=== PATIENT | female | born 1965 | race Two or more races ===

== ENCOUNTER 2020-02-29 17:23 | Inpatient (IN) | payer MEDICAID ==
[~2020-02-29] VITALS: Ht 162.6 cm; Wt 63.5 kg
--- NOTE | 2020-02-29 17:24 | NUR ---
ED Nurse Note: patient picked up from a bus stop and brought in by [facility] 68 due to near syncope episode. Per EMS, BP went down to 73/43 and NS 250ml was given. Denies LOC or head injury. AAO x4, follows commands with non labored breathing.
[2020-02-29 17:34] VITALS: BP 115/85
--- NOTE | 2020-02-29 17:43 | Emergency Room Report ---
History of Present Illness General Chief Complaint: Syncope Source: EMS Present Illness HPI Disclaimer: Please note that this report is being documented using [employer] technology. This can lead to erroneous entry secondary to incorrect interpretation by the dictating instrument. HPI: 54-year old female presents for near syncope. Apparently she was riding the bus, became dizzy, EMS was called, on their arrival she was hypotensive around 80 systolic. Given IV fluids which did improve her blood pressure. On arrival to ER she denied any complaints. She was feeling improved. She denies any chest pain shortness of breath nausea or vomiting. She denies any fevers. She denies any hematochezia or melena. She denies any history of similar episodes in the past. Striae of hypothyroidism. Allergies: Coded Allergies: No Known Allergies (Unverified , 02/29/20) COVID-19 Screening Contact w/high risk pt: No Experienced COVID-19 symptoms?: No COVID-19 Testing performed FEED RESEARCH TECHNICIAN: No Patient History Reviewed Nursing Documentation: PMH: Agreed; PSxH: Agreed Review of Systems All Other Systems: negative except mentioned in HPI Physical Exam Vital Signs Date Time Temp Pulse Resp B/P (MAP) Pulse Ox O2 Delivery O2 Flow Rate FiO2 02/29/20 17:24 60 16 101/76 (84) 99 Room Air Sp02 EP Interpretation: reviewed, normal General Appearance: well appearing, no apparent distress Head: normocephalic, atraumatic Eyes: bilateral eye PERRL, bilateral eye EOMI ENT: hearing grossly normal, moist mucus membranes Neck: full range of motion, supple Respiratory: lungs clear, normal breath sounds, no rhonchi, no respiratory distress, no retraction, no wheezing Cardiovascular #1: normal peripheral pulses, regular rate, rhythm, no murmur Gastrointestinal: non tender, soft, non-distended, no guarding Neurologic: alert, oriented x3, no focal defects Skin: normal color, warm/dry Medical Decision Making Diagnostic Impression: Primary Impression: Symptomatic bradycardia Additional Impressions: Near syncope Hypokalemia ER Course MDM: Differential diagnosis included but not limited to near syncope, symptomatic bradycardia, electrolyte disturbance dehydration, vasovagal syndrome, anemia Clinical course-IV inserted, normal saline bolus given laboratory studies were sent and showed evidence of hypokalemia. Patient was bradycardic in the ER, which may be the cause of her near syncopal event. She was never hypotensive in the ER but heart rate did go down to the high 40s. Patient denies any cardiac history. Opponent was negative. Potassium repletion given for a potassium of 2.8. Labs - Laboratory Tests Test 02/29/20 17:34 White Blood Count 5.8 K/UL (4.8-10.8) Red Blood Count 3.42 M/UL (4.20-5.40) L Hemoglobin 11.1 G/DL (12.0-16.0) L Hematocrit 33.4 % (37.0-47.0) L Mean Corpuscular Volume 98 FL (80-99) Mean Corpuscular Hemoglobin 32.4 PG (27.0-31.0) H Mean Corpuscular Hemoglobin Concent 33.2 G/DL (32.0-36.0) Red Cell Distribution Width 12.7 % (11.6-14.8) Platelet Count 185 K/UL (150-450) Mean Platelet Volume 6.8 FL (6.5-10.1) Neutrophils (%) (Auto) 47.5 % (45.0-75.0) Lymphocytes (%) (Auto) 42.4 % (20.0-45.0) Monocytes (%) (Auto) 8.1 % (1.0-10.0) Eosinophils (%) (Auto) 1.0 % (0.0-3.0) Basophils (%) (Auto) 1.1 % (0.0-2.0) Sodium Level 143 MMOL/L (136-145) Potassium Level 2.8 MMOL/L (3.5-5.1) L Chloride Level 107 MMOL/L (98-107) Carbon Dioxide Level 25 MMOL/L (21-32) Anion Gap 11 mmol/L (5-15) Blood Urea Nitrogen 20 mg/dL (7-18) H Creatinine 1.3 MG/DL (0.55-1.30) Estimated Glomerular Filtration Rate 42.4 mL/min (>60) Glucose Level 101 MG/DL (74-106) Calcium Level 8.9 MG/DL (8.5-10.1) Total Bilirubin 0.6 MG/DL (0.2-1.0) Aspartate Amino Transferase (AST) 51 U/L (15-37) H Alanine Aminotransferase (ALT) 27 U/L (12-78) Alkaline Phosphatase 37 U/L (46-116) L Troponin I 0.000 ng/mL (0.000-0.056) Total Protein 7.8 G/DL (6.4-8.2) Albumin 3.9 G/DL (3.4-5.0) Globulin 3.9 g/dL Albumin/Globulin Ratio 1.0 (1.0-2.7) On reevaluation: Patient remained in no acute distress Plan-admission to the telemetry floor for further observation. Patient admitted to the hospitalist. EKG Diagnostic Results Rate: normal Rhythm: NSR ST Segments: no acute changes Other Impression Prolonged QT Rhythm Strip Diag. Results EP Interpretation: yes Rate: 52 Rhythm: no ectopy Last Vital Signs Date Time Temp Pulse Resp B/P (MAP) Pulse Ox O2 Delivery O2 Flow Rate FiO2 02/29/20 17:24 60 16 101/76 (84) 99 Room Air Status: improved Disposition: ADMITTED INPATIENT Condition: Serious Alf Shelton M.D. Feb 29, 2020 17:43
--- NOTE | 2020-02-29 17:46 | NUR ---
ED Nurse Note: blood sent to lab
[2020-02-29 17:59] LABS: BASOPHILS % (AUTO) 1.1 % (0.0-2.0); HEMATOCRIT 33.4 % (37.0-47.0); HEMOGLOBIN 11.1 G/DL (12.0-16.0); LYMPHOCYTES % (AUTO) 42.4 % (20.0-45.0); MEAN CORPUSCULAR VOLUME 98 FL (80-99); MONOCYTES % (AUTO) 8.1 % (1.0-10.0); NEUTROPHILS % (AUTO) 47.5 % (45.0-75.0); PLATELET COUNT 185 K/UL (150-450); RED BLOOD COUNT 3.42 M/UL (4.20-5.40); RED CELL DISTRIBUTION WIDTH 12.7 % (11.6-14.8); WHITE BLOOD COUNT 5.8 K/UL (4.8-10.8)
[2020-02-29 18:22] LABS: ALBUMIN 3.9 G/DL (3.4-5.0); BILIRUBIN,TOTAL 0.6 MG/DL (0.2-1.0); CALCIUM 8.9 MG/DL (8.5-10.1); CREATININE 1.3 MG/DL (0.55-1.30); POTASSIUM 2.8 MMOL/L (3.5-5.1)
[2020-02-29 19:00] VITALS: BP 121/79
--- NOTE | 2020-02-29 19:00 | NUR ---
ED Nurse Note: received report from Nguyen godoy
[2020-02-29] MEDS ORDERED: LEVOTHYROXINE75 MCG ORAL (20:04)
[2020-02-29 20:47] VITALS: BP 118/89
--- NOTE | 2020-02-29 20:50 | NUR ---
NURSE NOTES: Report received from GUTIERREZ Rodriguez.
--- NOTE | 2020-02-29 21:00 | NUR ---
TRANSFER TO FLOOR: Patient transferred to [facility] via [facility] in stable condition as ordered, per dr. Morfin. Report given to Jody WHITLEY. Belongings and medications sent with patient
--- NOTE | 2020-02-29 21:02 | NUR ---
NURSE NOTES: Received patient from E.R via gurney to room 204-2. Patient is awake on bed, alert and oriented x 4. Belongings list checked and verified. Oriented to room, telemetry unit and hospital policies. Place monitoring and evaluation advisor, shows sinus bradycardia, HR of 52 with no chest pain reported. On room air, sating 98%. IV site is on left wrist g-20 saline lock that is patent and intact. Safety measures are in place, bed in lowest and locked position, side rails up x 2, call light button and bedside table within reach, instructed to call for any assistance needed. Will call MD for admission orders.
[2020-02-29 21:30] VITALS: BP 126/76
--- NOTE | 2020-02-29 21:30 | NUR ---
NURSE NOTES: Called and spoke to Dr. Morfin, received an orders, will carry out.
[2020-03-01] VITALS: BP 107/61
--- NOTE | 2020-03-01 00:40 | NUR ---
NURSE NOTES: Patient complaints of chest pain, nonradiating, scale of 6-7, pain describes as aching, intermittent. EKG was done, showed Sinus bradycardia, possible right ventricular hypertrophy. Vitals are as follows. BP 107/61, HR 51, O2 Sat 98%, RR 20. Informed Dr. Morfin, awaiting for call back.
[2020-03-01 04:00] VITALS: BP 103/66
--- NOTE | 2020-03-01 04:50 | NUR ---
NURSE NOTES: Dr. Morfin ordered stat troponin, will carry out. At this time, patient is asleep in stable condition, and states that she feels much better after a few hours of sleep.
[2020-03-01 05:40] LABS: BASOPHILS % (AUTO) 0.8 % (0.0-2.0); EOSINOPHILS % (AUTO) 0.9 % (0.0-3.0); HEMOGLOBIN 11.9 G/DL (12.0-16.0); LYMPHOCYTES % (AUTO) 26.2 % (20.0-45.0); MEAN CORPUSCULAR VOLUME 99 FL (80-99); MONOCYTES % (AUTO) 8.6 % (1.0-10.0); NEUTROPHILS % (AUTO) 63.5 % (45.0-75.0); PLATELET COUNT 201 K/UL (150-450); RED BLOOD COUNT 3.63 M/UL (4.20-5.40); RED CELL DISTRIBUTION WIDTH 12.6 % (11.6-14.8); WHITE BLOOD COUNT 4.7 K/UL (4.8-10.8)
[2020-03-01 06:19] LABS: ANION GAP 7 mmol/L (5-15); BLOOD UREA NITROGEN 15 mg/dL (7-18); CALCIUM 8.8 MG/DL (8.5-10.1); CARBON DIOXIDE 26 MMOL/L (21-32); CHLORIDE 108 MMOL/L (98-107); CREATININE 0.9 MG/DL (0.55-1.30); POTASSIUM 3.9 MMOL/L (3.5-5.1); SODIUM 141 MMOL/L (136-145)
--- NOTE | 2020-03-01 06:32 | NUR ---
NURSE NOTES: Troponin result is negative. Dr. Morfin made aware, no orders was made.
--- NOTE | 2020-03-01 07:29 | NUR ---
NURSE HAND-OFF REPORT: Important Events on Shift: Patient complaints of chest pain around 0045, nonradiating scale of 6-7. EKG was done, result attached to chart. Patient Status: Patient has been resting well at this time, denies any chest pain at this time. Plan of care endorsed. Diet: Cardiac diet. Pending Orders: Venous duplex scan and 2D ECHO Pending Results/Labs: cbc, bmp, mg and phos this morning Pending MD notification:none Latest Vital Signs: Temperature 97.1 , Pulse 47 , B/P 103 /66 , Respiratory Rate 20 , O2 SAT 100 , Room Air, O2 Flow Rate . Vital Sign Comment: stable EKG Rhythm: Sinus Bradycardia Rhythm change?: N MD Notified?: - MD Response: Latest Muro Fall Score: 20 Fall Risk: Low Risk Safety Measures: Call light Within Reach, Bed Alarm Zone 1, Side Rails Side Rails x2, Bed position Low and Locked. Fall Precautions: Patient Fall Education Report given to GUTIERREZ Candelaria.
--- NOTE | 2020-03-01 07:29 | NUR ---
NURSE NOTES: Pt in bed resting, breakfast tray at bedside. Says she has no chest pain at this time. Bed low and locked. Call light within reach.
[2020-03-01 08:00] VITALS: BP 114/68
--- NOTE | 2020-03-01 09:40 | History & Physical ---
History of Present Illness General Reason for Hospitalization: Syncope Present Illness HPI This is a 54-year old female who presents to [facility] for near syncope. Per report, she was on the bus, became dizzy, EMS was called, on their arrival she was hypotensive around 80 systolic. Given IV fluids and taken to [facility] arrival to ER she denied any complaints. She was feeling better but admitted for work up and management. She denies any chest pain shortness of breath nausea or vomiting. She denies any fevers. She denies any hematochezia or melena. She denies any history of similar episodes in the past Allergies: Coded Allergies: No Known Allergies (Unverified , 02/29/20) COVID-19 Screening Contact w/high risk pt: No Experienced COVID-19 symptoms?: No Medication History Scheduled Levothyroxine Sodium* (Synthorid*), 75 MCG ORAL DAILY, (Reported) Patient History Healthcare decision maker Resuscitation status Advanced Directive on File Review of Systems Review of Symptoms General ROS: no weight loss or fever Psychological ROS: no depression or mood changes, no memory loss Ophthalmic ROS: no visual changes or eye irritation ENT ROS: no nasal congestion, hearing loss, dizziness Allergy and Immunology ROS: no allergic symptoms or urticaria Hematological and Lymphatic ROS: no swollen glands, unusual bleeding or bruising Endocrine ROS: no polyuria, polydipsia, weight changes, temperature intolerance Respiratory ROS: no cough, shortness of breath, or wheezing Cardiovascular ROS: no chest pain or dyspnea on exertion Gastrointestinal ROS: denies abdominal pain, bright red blood in stool. Musculoskeletal ROS: no myalgias or arthralgias Neurological ROS: no TIA or stroke symptoms Dermatological ROS: no new or changing skin lesions, rashes or pruritis Physical Exam Physical Exam General appearance: alert, cooperative, no distress, appears stated age Head: Normocephalic, without obvious abnormality, atraumatic Eyes: conjunctivae/corneas clear. PERRL, EOM's intact. Fundi benign Throat: Lips, mucosa, and tongue normal. Teeth and gums normal Neck: supple, symmetrical, trachea midline, no adenopathy, thyroid: not enlarged, symmetric, no tenderness/mass/nodules, no carotid bruit and no JVD Lungs: clear to auscultation bilaterally Heart: regular rate and rhythm, S1, S2 normal, no murmur, click, rub or gallop Abdomen: soft, non-tender. Bowel sounds normal. No masses, no organomegaly Extremities: extremities normal, atraumatic, no cyanosis or edema Pulses: 2+ and symmetric Skin: Skin color, texture, turgor normal. No rashes or lesions Neurologic: Grossly normal Last 24 Hour Vital Signs Date Time Temp Pulse Resp B/P (MAP) Pulse Ox O2 Delivery O2 Flow Rate FiO2 03/01/20 08:00 52 03/01/20 08:00 97.9 55 18 114/68 (83) 97 03/01/20 04:00 47 03/01/20 04:00 97.1 48 20 103/66 (78) 100 03/01/20 00:00 96.6 51 20 107/61 (76) 98 03/01/20 00:00 52 02/29/20 21:59 Room Air 02/29/20 21:30 51 02/29/20 21:30 96.6 52 20 126/76 (93) 99 02/29/20 21:00 98.4 57 18 118/89 100 Room Air 02/29/20 20:47 98.4 57 18 118/89 100 Room Air 02/29/20 19:00 98.2 56 18 121/79 100 Room Air 02/29/20 17:34 97.9 78 20 115/85 100 Room Air 02/29/20 17:24 60 16 101/76 (84) 99 Room Air Intake and Output 02/29/20 03/01/20 19:00 07:00 Intake Total 1400 ml Balance 1400 ml Intake Oral 400 ml IV Total 1000 ml # Voids 3 Laboratory Tests Test 02/29/20 17:34 03/01/20 05:32 White Blood Count 5.8 K/UL (4.8-10.8) 4.7 K/UL (4.8-10.8) L Red Blood Count 3.42 M/UL (4.20-5.40) L 3.63 M/UL (4.20-5.40) L Hemoglobin 11.1 G/DL (12.0-16.0) L 11.9 G/DL (12.0-16.0) L Hematocrit 33.4 % (37.0-47.0) L 36.0 % (37.0-47.0) L Mean Corpuscular Volume 98 FL (80-99) 99 FL (80-99) Mean Corpuscular Hemoglobin 32.4 PG (27.0-31.0) H 32.8 PG (27.0-31.0) H Mean Corpuscular Hemoglobin Concent 33.2 G/DL (32.0-36.0) 33.1 G/DL (32.0-36.0) Red Cell Distribution Width 12.7 % (11.6-14.8) 12.6 % (11.6-14.8) Platelet Count 185 K/UL (150-450) 201 K/UL (150-450) Mean Platelet Volume 6.8 FL (6.5-10.1) 6.5 FL (6.5-10.1) Neutrophils (%) (Auto) 47.5 % (45.0-75.0) 63.5 % (45.0-75.0) Lymphocytes (%) (Auto) 42.4 % (20.0-45.0) 26.2 % (20.0-45.0) Monocytes (%) (Auto) 8.1 % (1.0-10.0) 8.6 % (1.0-10.0) Eosinophils (%) (Auto) 1.0 % (0.0-3.0) 0.9 % (0.0-3.0) Basophils (%) (Auto) 1.1 % (0.0-2.0) 0.8 % (0.0-2.0) Sodium Level 143 MMOL/L (136-145) 141 MMOL/L (136-145) Potassium Level 2.8 MMOL/L (3.5-5.1) L 3.9 MMOL/L (3.5-5.1) Chloride Level 107 MMOL/L (98-107) 108 MMOL/L (98-107) H Carbon Dioxide Level 25 MMOL/L (21-32) 26 MMOL/L (21-32) Anion Gap 11 mmol/L (5-15) 7 mmol/L (5-15) Blood Urea Nitrogen 20 mg/dL (7-18) H 15 mg/dL (7-18) Creatinine 1.3 MG/DL (0.55-1.30) 0.9 MG/DL (0.55-1.30) Estimat Glomerular Filtration Rate 42.4 mL/min (>60) > 60 mL/min (>60) Glucose Level 101 MG/DL (74-106) 93 MG/DL (74-106) Calcium Level 8.9 MG/DL (8.5-10.1) 8.8 MG/DL (8.5-10.1) Total Bilirubin 0.6 MG/DL (0.2-1.0) Aspartate Amino Transf (AST/SGOT) 51 U/L (15-37) H Alanine Aminotransferase (ALT/SGPT) 27 U/L (12-78) Alkaline Phosphatase 37 U/L (46-116) L Troponin I 0.000 ng/mL (0.000-0.056) 0.000 ng/mL (0.000-0.056) Total Protein 7.8 G/DL (6.4-8.2) Albumin 3.9 G/DL (3.4-5.0) Globulin 3.9 g/dL Albumin/Globulin Ratio 1.0 (1.0-2.7) Phosphorus Level 4.0 MG/DL (2.5-4.9) Magnesium Level 2.2 MG/DL (1.8-2.4) Height (Feet): 5 Height (Inches): 4.00 Weight (Pounds): 140 Medications Current Medications Medications (Trade) Dose Ordered Sig/Satya Route PRN Reason Start Time Stop Time Status Last Admin Dose Admin Levothyroxine Sodium (Synthroid) 75 mcg BEFORE BREAKFAST ORAL 03/01/20 06:30 03/31/20 06:29 03/01/20 05:52 Assessment/Plan Diagnosis [place]: #Syncope #bradycardia #Weakness - admit to tele -cardiology eval - monitor vitals - echo - TSH - increase levothyroxine to 100 mcg daily - consider endocrine eval Time spent 70 min [facility] Hospital declaration Disposition: Once the patient is stable to leave the hospital, I anticipate the patient will likely be discharged to the following environment: Home Estimated discharge date: 03/02/20 I spent 70 minutes on this patient's case, and 35 minutes was dedicated to counseling and/or care coordination. MIPS (Merit-based Incentive Payment System) Applicable CPT: 26871, 32079 CHECK ALL THAT ARE MET: Measure #5 (CHF): All ages. Prescribe CARMINA/ARB upon discharge for patients with left ventricular systolic dysfunction. If not, the reason is clearly documented in the medical chart. Measure #8 (CHF): All ages. Prescribe a beta luis upon discharge for patients with left ventricular systolic dysfunction. If not, the reason is clearly documented in the medical chart. Measure #47 Advance care plan or surrogate decision maker documented in the medical record. Measure #130 The provider has documented, updated, or reviewed the patients current medication list and has documented it in the patients note. Measure #374 (All): Send report to referring provider. Measure #407(Sepsis due to MSSA bacteremia): Age 18+ Patient treated with a beta-lactam antibiotic (Nafcillin, Oxacillin or Cefazolin) as definitive therapy. MEDICAL COMPLEXITY High complexity medical decision making (need 2/3 categories) Problem - need 4 points Acute/new problem with new plan for workup (4 points, 1 max) Acute/new problem without additional workup (3 points, 1 max) Unstable chronic problem actively being managed (2 point each, 2 max) Stable chronic problem actively being managed (1 point each, 2 max) Self-limited/transient process (constipation, muscle ache, etc) (1 point each, 2 max) Data - need 4 points Reviewed labs/imaging studies (1 points, 2 max) Independent review of imaging (EKG, xrays, etc) (2 points, 2 max) Discussed case with consult/other MD/RN (2 points, 2 max) High Risk - qualify if have one of the following: Severe exacerbation of acute problem, acute mental status change, IV narcotics, monitoring drug levels (vancomycin, INR, tacrolimus etc) Mita Morfin M.D. Mar 01, 2020 09:40
--- NOTE | 2020-03-01 10:28 | Cardiac Electrophysiology PN ---
Subjective Subjective [id number] Objective Last 24 Hour Vital Signs Date Time Temp Pulse Resp B/P (MAP) Pulse Ox O2 Delivery O2 Flow Rate FiO2 03/01/20 08:00 52 03/01/20 08:00 97.9 55 18 114/68 (83) 97 03/01/20 04:00 47 03/01/20 04:00 97.1 48 20 103/66 (78) 100 03/01/20 00:00 96.6 51 20 107/61 (76) 98 03/01/20 00:00 52 02/29/20 21:59 Room Air 02/29/20 21:30 51 02/29/20 21:30 96.6 52 20 126/76 (93) 99 02/29/20 21:00 98.4 57 18 118/89 100 Room Air 02/29/20 20:47 98.4 57 18 118/89 100 Room Air 02/29/20 19:00 98.2 56 18 121/79 100 Room Air 02/29/20 17:34 97.9 78 20 115/85 100 Room Air 02/29/20 17:24 60 16 101/76 (84) 99 Room Air Intake and Output 02/29/20 03/01/20 19:00 07:00 Intake Total 1400 ml Balance 1400 ml Intake Oral 400 ml IV Total 1000 ml # Voids 3 Laboratory Tests Test 02/29/20 17:34 03/01/20 05:32 White Blood Count 5.8 K/UL (4.8-10.8) 4.7 K/UL (4.8-10.8) L Red Blood Count 3.42 M/UL (4.20-5.40) L 3.63 M/UL (4.20-5.40) L Hemoglobin 11.1 G/DL (12.0-16.0) L 11.9 G/DL (12.0-16.0) L Hematocrit 33.4 % (37.0-47.0) L 36.0 % (37.0-47.0) L Mean Corpuscular Volume 98 FL (80-99) 99 FL (80-99) Mean Corpuscular Hemoglobin 32.4 PG (27.0-31.0) H 32.8 PG (27.0-31.0) H Mean Corpuscular Hemoglobin Concent 33.2 G/DL (32.0-36.0) 33.1 G/DL (32.0-36.0) Red Cell Distribution Width 12.7 % (11.6-14.8) 12.6 % (11.6-14.8) Platelet Count 185 K/UL (150-450) 201 K/UL (150-450) Mean Platelet Volume 6.8 FL (6.5-10.1) 6.5 FL (6.5-10.1) Neutrophils (%) (Auto) 47.5 % (45.0-75.0) 63.5 % (45.0-75.0) Lymphocytes (%) (Auto) 42.4 % (20.0-45.0) 26.2 % (20.0-45.0) Monocytes (%) (Auto) 8.1 % (1.0-10.0) 8.6 % (1.0-10.0) Eosinophils (%) (Auto) 1.0 % (0.0-3.0) 0.9 % (0.0-3.0) Basophils (%) (Auto) 1.1 % (0.0-2.0) 0.8 % (0.0-2.0) Sodium Level 143 MMOL/L (136-145) 141 MMOL/L (136-145) Potassium Level 2.8 MMOL/L (3.5-5.1) L 3.9 MMOL/L (3.5-5.1) Chloride Level 107 MMOL/L (98-107) 108 MMOL/L (98-107) H Carbon Dioxide Level 25 MMOL/L (21-32) 26 MMOL/L (21-32) Anion Gap 11 mmol/L (5-15) 7 mmol/L (5-15) Blood Urea Nitrogen 20 mg/dL (7-18) H 15 mg/dL (7-18) Creatinine 1.3 MG/DL (0.55-1.30) 0.9 MG/DL (0.55-1.30) Estimat Glomerular Filtration Rate 42.4 mL/min (>60) > 60 mL/min (>60) Glucose Level 101 MG/DL (74-106) 93 MG/DL (74-106) Calcium Level 8.9 MG/DL (8.5-10.1) 8.8 MG/DL (8.5-10.1) Total Bilirubin 0.6 MG/DL (0.2-1.0) Aspartate Amino Transf (AST/SGOT) 51 U/L (15-37) H Alanine Aminotransferase (ALT/SGPT) 27 U/L (12-78) Alkaline Phosphatase 37 U/L (46-116) L Troponin I 0.000 ng/mL (0.000-0.056) 0.000 ng/mL (0.000-0.056) Total Protein 7.8 G/DL (6.4-8.2) Albumin 3.9 G/DL (3.4-5.0) Globulin 3.9 g/dL Albumin/Globulin Ratio 1.0 (1.0-2.7) Phosphorus Level 4.0 MG/DL (2.5-4.9) Magnesium Level 2.2 MG/DL (1.8-2.4) Pete Nathan MD Mar 01, 2020 10:28
--- NOTE | 2020-03-01 11:00 | Consultation ---
DATE OF CONSULTATION: 03/01/2020 CARDIOLOGY CONSULTATION CONSULTING PHYSICIAN: Pete Nathan MD. REFERRING PHYSICIAN: Mita Morfin MD REASON FOR CONSULTATION: Bradycardia and hypotension. HISTORY OF PRESENT ILLNESS: The patient is a 54-year-old lady who presented to the hospital for near syncope. The patient was riding in the bus and she felt dizzy. EMS was called. The patient was hypotensive with blood pressure in the 80s. The patient received IV fluid, improved her symptoms. On arrival to the emergency room, the patient did not have any chest pain or shortness of breath, blood pressure was 101/76. The patient had no melena or hematochezia. The patient denies any prior symptoms in the past. The patient's EKG showed sinus bradycardia rate of 49 and right ventricular hypertrophy. REVIEW OF SYSTEMS: Negative other than what is mentioned in the history of present illness. PAST MEDICAL HISTORY: As mentioned above. FAMILY HISTORY: Noncontributory. SOCIAL HISTORY: She lives at home. Does not smoke or drink alcohol or use any drugs. PHYSICAL EXAMINATION: VITAL SIGNS: Show blood pressure of 114/68, pulse 55, respirations 18, and she is afebrile. HEAD AND NECK: Showed no JVD or carotid bruit. LUNGS: Clear. CARDIOVASCULAR: Regular S1 and S2 with no gallop or murmur. ABDOMEN: Soft. EXTREMITIES: No pitting edema. LABORATORY AND DIAGNOSTIC DATA: Labs show white count of 4.7, hemoglobin 11.9, hematocrit 36, and platelet count is 201. Sodium 141, potassium 3.9, BUN of 15, creatinine 0.9. Troponin negative x2. ASSESSMENT AND PLAN: 1. Presyncope and hypotension likely due to dehydration. The patient already ruled out for myocardial infarction. The patient was bradycardic with heart rate mostly in the 50s. 2. Bradycardia. EKG showed heart rate of 49. Currently, heart rate is in the 50s. The patient off any sinus fareed or AV fareed blocking agents. We will get an echocardiogram to evaluate for ejection fraction and wall motion abnormality. 3. Hypothyroidism on Synthroid. Thank you very much for allowing me to participate in the care of this patient. Please do not hesitate to contact me for any questions regarding my evaluation. Sincerely, Pete Nathan M.D. DR: Megan JOB#: [id number] CC:
[2020-03-01 12:00] VITALS: BP 109/63
--- NOTE | 2020-03-01 13:36 | Diagnostic Imaging Report ---
Indication: Shortness of breath Technique: One view of the chest Comparison: None Findings: The heart is borderline enlarged. Lungs and pleural spaces are clear Impression: Borderline cardiomegaly. No acute process
--- NOTE | 2020-03-01 13:47 | Diagnostic Imaging Report ---
Indication: Bilateral lower extremity pain. Chest pain Technique: Grayscale and duplex images of the bilateral lower extremity veins Comparison: None Findings: Bilaterally, grayscale and duplex images demonstrate no evidence of intraluminal thrombus. Normal phasic Doppler waveforms, demonstrating normal augmentation response and no evidence of valvular insufficiency. Greater saphenous vein(s) and tibial veins are patent. Normal compressibility. Impression: Negative for evidence of lower extremity deep venous thrombosis bilaterally
--- NOTE | 2020-03-01 14:08 | Consultation ---
History of Present Illness General Date patient seen: Mar 01, 2020 Reason for Hospitalization: Syncope Present Illness HPI This is a 54-year old female who presents to [facility] for near syncope. Per report, she was on the bus, became dizzy, EMS was called, on their arrival she was hypotensive around 80 systolic. Given IV fluids and taken to [facility] arrival to ER she denied any complaints. She was feeling better but admitted for work up and management. She denies any chest pain shortness of breath nausea or vomiting. She denies any fevers. She denies any hematochezia or melena. She denies any history of similar episodes in the past. Striae of hypothyroidism. unsure of medical history and concern for potential injury. surgery called to evaluate and assist with care. Allergies: Coded Allergies: No Known Allergies (Unverified , 02/29/20) COVID-19 Screening Contact w/high risk pt: No Experienced COVID-19 symptoms?: No Medication History Scheduled Levothyroxine Sodium* (Synthorid*), 75 MCG ORAL DAILY, (Reported) Patient History History Provided By: Patient, Medical Record, PMD Healthcare decision maker Resuscitation status Advanced Directive on File Past Medical/Surgical History Past Medical/Surgical History: (1) Hypothyroid (2) Hypokalemia (3) Near syncope (4) Symptomatic bradycardia Review of Systems Review of Symptoms General ROS: no weight loss or fever Psychological ROS: no depression or mood changes, no memory loss Ophthalmic ROS: no visual changes or eye irritation ENT ROS: no nasal congestion, hearing loss, dizziness Allergy and Immunology ROS: no allergic symptoms or urticaria Hematological and Lymphatic ROS: no swollen glands, unusual bleeding or bruising Endocrine ROS: no polyuria, polydipsia, weight changes, temperature intolerance Respiratory ROS: no cough, shortness of breath, or wheezing Cardiovascular ROS: no chest pain or dyspnea on exertion Gastrointestinal ROS: denies abdominal pain, bright red blood in stool. Musculoskeletal ROS: no myalgias or arthralgias Neurological ROS: no TIA or stroke symptoms Dermatological ROS: no new or changing skin lesions, rashes or pruritis Physical Exam Physical Exam General appearance: alert, cooperative, no distress, appears stated age Head: Normocephalic, without obvious abnormality, atraumatic Eyes: conjunctivae/corneas clear. PERRL, EOM's intact. Fundi benign Throat: Lips, mucosa, and tongue normal. Teeth and gums normal Neck: supple, symmetrical, trachea midline, no adenopathy, thyroid: not enlarged, symmetric, no tenderness/mass/nodules, no carotid bruit and no JVD Lungs: clear to auscultation bilaterally Heart: regular rate and rhythm, S1, S2 normal, no murmur, click, rub or gallop Abdomen: soft, non-tender. Bowel sounds normal. No masses, no organomegaly Extremities: extremities normal, atraumatic, no cyanosis or edema Pulses: 2+ and symmetric Skin: Skin color, texture, turgor normal. No rashes or lesions Neurologic: Grossly normal Last 24 Hour Vital Signs Date Time Temp Pulse Resp B/P (MAP) Pulse Ox O2 Delivery O2 Flow Rate FiO2 03/01/20 12:00 98.6 73 20 109/63 (78) 98 03/01/20 12:00 52 03/01/20 09:00 Room Air 03/01/20 08:00 52 03/01/20 08:00 97.9 55 18 114/68 (83) 97 03/01/20 04:00 47 03/01/20 04:00 97.1 48 20 103/66 (78) 100 03/01/20 00:00 96.6 51 20 107/61 (76) 98 03/01/20 00:00 52 02/29/20 21:59 Room Air 02/29/20 21:30 51 02/29/20 21:30 96.6 52 20 126/76 (93) 99 02/29/20 21:00 98.4 57 18 118/89 100 Room Air 02/29/20 20:47 98.4 57 18 118/89 100 Room Air 02/29/20 19:00 98.2 56 18 121/79 100 Room Air 02/29/20 17:34 97.9 78 20 115/85 100 Room Air 02/29/20 17:24 60 16 101/76 (84) 99 Room Air Intake and Output 02/29/20 03/01/20 19:00 07:00 Intake Total 1400 ml Balance 1400 ml Intake Oral 400 ml IV Total 1000 ml # Voids 3 Laboratory Tests Test 02/29/20 17:34 03/01/20 05:32 White Blood Count 5.8 K/UL (4.8-10.8) 4.7 K/UL (4.8-10.8) L Red Blood Count 3.42 M/UL (4.20-5.40) L 3.63 M/UL (4.20-5.40) L Hemoglobin 11.1 G/DL (12.0-16.0) L 11.9 G/DL (12.0-16.0) L Hematocrit 33.4 % (37.0-47.0) L 36.0 % (37.0-47.0) L Mean Corpuscular Volume 98 FL (80-99) 99 FL (80-99) Mean Corpuscular Hemoglobin 32.4 PG (27.0-31.0) H 32.8 PG (27.0-31.0) H Mean Corpuscular Hemoglobin Concent 33.2 G/DL (32.0-36.0) 33.1 G/DL (32.0-36.0) Red Cell Distribution Width 12.7 % (11.6-14.8) 12.6 % (11.6-14.8) Platelet Count 185 K/UL (150-450) 201 K/UL (150-450) Mean Platelet Volume 6.8 FL (6.5-10.1) 6.5 FL (6.5-10.1) Neutrophils (%) (Auto) 47.5 % (45.0-75.0) 63.5 % (45.0-75.0) Lymphocytes (%) (Auto) 42.4 % (20.0-45.0) 26.2 % (20.0-45.0) Monocytes (%) (Auto) 8.1 % (1.0-10.0) 8.6 % (1.0-10.0) Eosinophils (%) (Auto) 1.0 % (0.0-3.0) 0.9 % (0.0-3.0) Basophils (%) (Auto) 1.1 % (0.0-2.0) 0.8 % (0.0-2.0) Sodium Level 143 MMOL/L (136-145) 141 MMOL/L (136-145) Potassium Level 2.8 MMOL/L (3.5-5.1) L 3.9 MMOL/L (3.5-5.1) Chloride Level 107 MMOL/L (98-107) 108 MMOL/L (98-107) H Carbon Dioxide Level 25 MMOL/L (21-32) 26 MMOL/L (21-32) Anion Gap 11 mmol/L (5-15) 7 mmol/L (5-15) Blood Urea Nitrogen 20 mg/dL (7-18) H 15 mg/dL (7-18) Creatinine 1.3 MG/DL (0.55-1.30) 0.9 MG/DL (0.55-1.30) Estimat Glomerular Filtration Rate 42.4 mL/min (>60) > 60 mL/min (>60) Glucose Level 101 MG/DL (74-106) 93 MG/DL (74-106) Calcium Level 8.9 MG/DL (8.5-10.1) 8.8 MG/DL (8.5-10.1) Total Bilirubin 0.6 MG/DL (0.2-1.0) Aspartate Amino Transf (AST/SGOT) 51 U/L (15-37) H Alanine Aminotransferase (ALT/SGPT) 27 U/L (12-78) Alkaline Phosphatase 37 U/L (46-116) L Troponin I 0.000 ng/mL (0.000-0.056) 0.000 ng/mL (0.000-0.056) Total Protein 7.8 G/DL (6.4-8.2) Albumin 3.9 G/DL (3.4-5.0) Globulin 3.9 g/dL Albumin/Globulin Ratio 1.0 (1.0-2.7) Phosphorus Level 4.0 MG/DL (2.5-4.9) Magnesium Level 2.2 MG/DL (1.8-2.4) Thyroid Stimulating Hormone (TSH) 52.554 uiU/mL (0.358-3.740) Free Thyroxine 0.79 NG/DL (0.76-1.46) Height (Feet): 5 Height (Inches): 4.00 Weight (Pounds): 140 Medications Current Medications Medications (Trade) Dose Ordered Sig/Satya Route PRN Reason Start Time Stop Time Status Last Admin Dose Admin Levothyroxine Sodium (Synthroid) 75 mcg BEFORE BREAKFAST ORAL 03/01/20 06:30 03/31/20 06:29 03/01/20 05:52 Assessment/Plan Problem List: (1) Hypokalemia ICD Codes: E87.6 - Hypokalemia SNOMED: 24801156, 853720721 (2) Hypothyroid Assessment & Plan: 54F tsh elevated, near syncope, hypotensive, abnormal labs. feeling better now thyroid US ordered thyroid labs noted cardiology input appreciated supplementation po intake pt/ot clear will follow with recs thank you ICD Codes: E03.9 - Hypothyroidism, unspecified SNOMED: 45007221 (3) Near syncope Assessment & Plan: duplex negative no dvt work up ICD Codes: R55 - Syncope and collapse SNOMED: 096769545, 461102052 (4) Symptomatic bradycardia Assessment & Plan: as per cardiology ICD Codes: R00.1 - Bradycardia, unspecified SNOMED: 58544590, [id number] Jesus Wing Mar 01, 2020 14:08
--- NOTE | 2020-03-01 14:47 | NUR ---
CASE MANAGEMENT:REVIEW BIBA FROM BUS STOP CC: SYNCOPE WITH BP 73/43 SI: SYMPTOMATIC BRADYCARDIA. HYPOKALEMIA. HYPOTENSION 97.9 56 16 101/76 99% ON RA H/H-11.9/36.0 TSH+52.554 IS: 1L NS BOLUS KCL PO X2 SYNTHROID PO : TO TELEMETRY
[2020-03-01 16:00] VITALS: BP 109/62
--- NOTE | 2020-03-01 16:36 | Diagnostic Imaging Report ---
Indication: . Abnormal thyroid function tests Technique: Grayscale and duplex images of the thyroid Comparison: none Findings: Right thyroid lobe measures 2.5 cm length x 1.3 cm AP. Left thyroid lobe measures 2.6 cm length x 1 cm AP. Both thyroid lobes demonstrate normal echogenicity. The right thyroid lobe demonstrates a posterior mass. This measures 1.9 x 0.9 x 1 cm diameter. It is solid, slightly hypoechoic, wider than tall, with no calcifications. Margins are well-circumscribed Impression: 1.9 x 1 x 0.9 cm posterior right lobe thyroid mass. This is a TI RADS-4 lesion. By size criteria, fine-needle aspiration is recommended No other significant abnormality
--- NOTE | 2020-03-01 17:22 | NUR ---
NURSE HAND-OFF REPORT: Important Events on Shift:[Synthroid dose increased based on high TSH results. Mass noted in posterior right thyroid. per radiologist needle aspiration recommended] Patient Status: [stable] Diet: [Cardiac] Pending Orders: [] Pending Results/Labs:[] Pending MD notification:[Dr. Wing and Dr. Morfin need to see thyroid US results.] Latest Vital Signs: Temperature 98.6 , Pulse 65 , B/P 109 /62 , Respiratory Rate 18 , O2 SAT 99 , Room Air, O2 Flow Rate . Vital Sign Comment: [] EKG Rhythm: Sinus Bradycardia Rhythm change?: N MD Notified?: - MD Response: Latest Muro Fall Score: 20 Fall Risk: Low Risk Safety Measures: Call light Within Reach, Bed Alarm Zone 1, Side Rails Side Rails x2, Bed position Low and Locked. Fall Precautions: Patient Fall Education Report given to [Pending RN Assignment]. Addendum: 03/01/20 at 1736 by Teagan Dorman RN Per orders, CBC, BMP, Mg, Phos daily Addendum: 03/01/20 at 1919 by Teagan Dorman RN Report given to Lorraine WHITLEY
--- NOTE | 2020-03-01 19:30 | NUR ---
NURSE NOTES: Received report from GUTIERREZ Candelaria. Patient is resting in low-fowlers position. Is in room air; no acute distress noted at this time. Patient is AOx4; [place] seeking. Patient is able to make need known. No pain reported at this time. IV site is on left wrist 20G S/L; patent and flushed. No bleeding or erythema noted. Patient is adulatory, with assistance do to a near fainting moment. Patient has a left sided limp. Fall risk do to recent fall. Bed is low and locked, side rails up x2 top two side rails are padded. Patient has been educated to use call light when needing assistance. Call light in reach and bed alarm on. Will continue plan of care.
[2020-03-01 20:00] VITALS: BP 93/57
[2020-03-02] VITALS: BP 101/60
[2020-03-02 04:00] VITALS: BP 103/67
[2020-03-02 06:05] LABS: EOSINOPHILS % (AUTO) 1.5 % (0.0-3.0); HEMATOCRIT 38.3 % (37.0-47.0); HEMOGLOBIN 12.5 G/DL (12.0-16.0); LYMPHOCYTES % (AUTO) 37.9 % (20.0-45.0); MEAN CORPUSCULAR VOLUME 101 FL (80-99); MONOCYTES % (AUTO) 7.6 % (1.0-10.0); NEUTROPHILS % (AUTO) 52.1 % (45.0-75.0); PLATELET COUNT 210 K/UL (150-450); RED BLOOD COUNT 3.81 M/UL (4.20-5.40); WHITE BLOOD COUNT 4.9 K/UL (4.8-10.8)
[2020-03-02 06:27] LABS: ANION GAP 8 mmol/L (5-15); BLOOD UREA NITROGEN 15 mg/dL (7-18); CALCIUM 8.5 MG/DL (8.5-10.1); CARBON DIOXIDE 26 MMOL/L (21-32); CHLORIDE 107 MMOL/L (98-107); CREATININE 0.9 MG/DL (0.55-1.30); PHOSPHORUS 3.3 MG/DL (2.5-4.9); POTASSIUM 3.7 MMOL/L (3.5-5.1); SODIUM 141 MMOL/L (136-145)
--- NOTE | 2020-03-02 07:30 | NUR ---
NURSE NOTES: Received pt from GUTIERREZ Peters, pt is awake and alert, pt is in RA, no SOB or acute respiratory distress noted. pt is on continues heart monitoring, pt has intact iv access L wrist 20G SL. pt is eating breakfast by observation. all needs attended, bed is locked and is in the lowest position. call light within easy reach. will continue to monitor.
--- NOTE | 2020-03-02 07:38 | NUR ---
NURSE HAND-OFF REPORT: Important Events on Shift: Patient Status: No acute distress Diet: Cardiac thin liquid whole pills Pending Orders: Pending Results/Labs: Pending MD notification: Latest Vital Signs: Temperature 97.7 , Pulse 56 , B/P 103 /67 , Respiratory Rate 17 , O2 SAT 96 , Room Air, O2 Flow Rate . Vital Sign Comment: EKG Rhythm: Sinus Bradycardia Rhythm change?: N MD Notified?: - MD Response: Latest Muro Fall Score: 20 Fall Risk: Low Risk Safety Measures: Call light Within Reach, Bed Alarm Zone 1, Side Rails Side Rails x1, Bed position Low and Locked. Fall Precautions: Yellow Socks Yellow Gown Door Sign Patient Fall Education Report given to Bakari WHITLEY .
[2020-03-02 08:00] VITALS: BP 100/59
--- NOTE | 2020-03-02 08:48 | NUR ---
CASE MANAGEMENT:REVIEW 03/02/20 SI: BRADYCARDIA. HYPOTENSION HYPOTHYROIDISM 97.7 52 17 93/57-->103/67 96% ON RA IS: SYNTHROID 100MCG PO QAM : TELEMETRY STATUS DCP: HOME PLAN: SYNTHROID DOSE INCREASED FROM 75MCG TO 100MCG QAM
[2020-03-02 12:00] VITALS: BP 90/59
--- NOTE | 2020-03-02 12:28 | Cardiac Electrophysiology PN ---
Assessment/Plan Assessment/Plan 1. Presyncope and hypotension likely due to dehydration. The patient already ruled out for myocardial infarction. The patient was bradycardic with heart rate mostly in the 50s. 2. Bradycardia. EKG showed heart rate of 49. Currently, heart rate is in the 50s. The patient off any sinus fareed or AV fareed blocking agents. EF 55% 3. Hypothyroidism on Synthroid. Subjective Subjective HR in 50s no CP or SOB. BP better Objective Last 24 Hour Vital Signs Date Time Temp Pulse Resp B/P (MAP) Pulse Ox O2 Delivery O2 Flow Rate FiO2 03/02/20 09:00 Room Air 03/02/20 07:47 59 03/02/20 04:00 56 03/02/20 04:00 97.7 52 17 103/67 (79) 96 03/02/20 00:00 55 03/02/20 00:00 97.9 55 18 101/60 (74) 97 03/01/20 21:00 Room Air 03/01/20 20:00 97.9 62 19 93/57 (69) 96 03/01/20 20:00 57 03/01/20 16:00 65 03/01/20 16:00 98.6 60 18 109/62 (78) 99 Intake and Output 03/01/20 03/02/20 18:59 06:59 Intake Total 480 ml 210 ml Balance 480 ml 210 ml Intake Oral 480 ml 210 ml # Voids 3 3 Laboratory Tests Test 03/02/20 05:20 White Blood Count 4.9 K/UL (4.8-10.8) Red Blood Count 3.81 M/UL (4.20-5.40) L Hemoglobin 12.5 G/DL (12.0-16.0) Hematocrit 38.3 % (37.0-47.0) Mean Corpuscular Volume 101 FL (80-99) H Mean Corpuscular Hemoglobin 32.8 PG (27.0-31.0) H Mean Corpuscular Hemoglobin Concent 32.6 G/DL (32.0-36.0) Red Cell Distribution Width 13.0 % (11.6-14.8) Platelet Count 210 K/UL (150-450) Mean Platelet Volume 6.8 FL (6.5-10.1) Neutrophils (%) (Auto) 52.1 % (45.0-75.0) Lymphocytes (%) (Auto) 37.9 % (20.0-45.0) Monocytes (%) (Auto) 7.6 % (1.0-10.0) Eosinophils (%) (Auto) 1.5 % (0.0-3.0) Basophils (%) (Auto) 1.0 % (0.0-2.0) Sodium Level 141 MMOL/L (136-145) Potassium Level 3.7 MMOL/L (3.5-5.1) Chloride Level 107 MMOL/L (98-107) Carbon Dioxide Level 26 MMOL/L (21-32) Anion Gap 8 mmol/L (5-15) Blood Urea Nitrogen 15 mg/dL (7-18) Creatinine 0.9 MG/DL (0.55-1.30) Estimat Glomerular Filtration Rate > 60 mL/min (>60) Glucose Level 90 MG/DL (74-106) Calcium Level 8.5 MG/DL (8.5-10.1) Phosphorus Level 3.3 MG/DL (2.5-4.9) Magnesium Level 2.0 MG/DL (1.8-2.4) Pro-B-Type Natriuretic Peptide 56 pg/mL (0-125) Objective HEAD AND NECK: No JVD or carotid bruit. LUNGS: Clear. CARDIOVASCULAR: Regular S1 and S2 with no gallop or murmur. ABDOMEN: Soft. EXTREMITIES: No pitting edema. Pete Nathan MD Mar 02, 2020 12:28
--- NOTE | 2020-03-02 12:56 | NUR ---
NURSE NOTES: Dr Nathan visited pt and is aware about HR and BP, no new order received, will continue to monitor.
--- NOTE | 2020-03-02 13:18 | Internal Med Progress Note ---
Subjective Physician Name Mita Morfin Attending Physician Mita Morfin M.D. Current Medications Medications (Trade) Dose Ordered Sig/Satya Route PRN Reason Start Time Stop Time Status Last Admin Dose Admin Levothyroxine Sodium (Synthroid) 125 mcg BEFORE BREAKFAST ORAL 03/02/20 13:15 04/01/20 06:29 Sodium Chloride 500 ml @ 999 mls/hr Q31M ONCE IV 03/02/20 13:15 03/02/20 13:45 Allergies: Coded Allergies: No Known Allergies (Unverified , 02/29/20) ROS Limited/Unobtainable: No Constitutional: Reports: weakness HEENT: Denies: no symptoms, eye pain, blurred vision, tearing, double vision, ear pain, ear discharge, nose pain, nose congestion, throat pain, throat swelling, mouth pain, mouth swelling, other Cardiovascular: Denies: no symptoms, chest pain, edema, irregular heart rate, lightheadedness, palpitations, syncope, other Respiratory: Denies: no symptoms, cough, orthopnea, shortness of breath, SOB with excertion, SOB at rest, sputum, stridor, wheezing, other Gastrointestinal/Abdominal: Denies: no symptoms, abdomen distended, abdominal pain, black stools, tarry stools, blood in stool, constipated, diarrhea, difficu lty swallowing, nausea, poor appetite, poor fluid intake, rectal bleeding, vomiting, other Genitourinary: Denies: no symptoms, burning, discharge, frequency, flank pain, hematuria, incontinence, pain, urgency, other Neurologic/Psychiatric: Denies: no symptoms, anxiety, depressed, emotional problems, headache, numbness, paresthesia, pre-existing deficit, seizure, tingling, tremors, weakness, other All Systems: reviewed and negative except above Subjective Still maeve in the 50s no chest pain no SOB Objective Last Vital Signs Date Time Temp Pulse Resp B/P (MAP) Pulse Ox O2 Delivery O2 Flow Rate FiO2 03/02/20 12:00 99.9 64 19 90/59 (69) 99 03/02/20 09:00 Room Air General Appearance: no apparent distress, alert EENT: PERRL/EOMI Neck: non-tender, normal alignment Cardiovascular: normal peripheral pulses Respiratory/Chest: chest wall non-tender, lungs clear, normal breath sounds Abdomen: normal bowel sounds, non tender Genitourinary/Rectal: normal genital exam Extremities: normal range of motion, non-tender Laboratory Tests Test 03/02/20 05:20 White Blood Count 4.9 K/UL (4.8-10.8) Red Blood Count 3.81 M/UL (4.20-5.40) L Hemoglobin 12.5 G/DL (12.0-16.0) Hematocrit 38.3 % (37.0-47.0) Mean Corpuscular Volume 101 FL (80-99) H Mean Corpuscular Hemoglobin 32.8 PG (27.0-31.0) H Mean Corpuscular Hemoglobin Concent 32.6 G/DL (32.0-36.0) Red Cell Distribution Width 13.0 % (11.6-14.8) Platelet Count 210 K/UL (150-450) Mean Platelet Volume 6.8 FL (6.5-10.1) Neutrophils (%) (Auto) 52.1 % (45.0-75.0) Lymphocytes (%) (Auto) 37.9 % (20.0-45.0) Monocytes (%) (Auto) 7.6 % (1.0-10.0) Eosinophils (%) (Auto) 1.5 % (0.0-3.0) Basophils (%) (Auto) 1.0 % (0.0-2.0) Sodium Level 141 MMOL/L (136-145) Potassium Level 3.7 MMOL/L (3.5-5.1) Chloride Level 107 MMOL/L (98-107) Carbon Dioxide Level 26 MMOL/L (21-32) Anion Gap 8 mmol/L (5-15) Blood Urea Nitrogen 15 mg/dL (7-18) Creatinine 0.9 MG/DL (0.55-1.30) Estimat Glomerular Filtration Rate > 60 mL/min (>60) Glucose Level 90 MG/DL (74-106) Calcium Level 8.5 MG/DL (8.5-10.1) Phosphorus Level 3.3 MG/DL (2.5-4.9) Magnesium Level 2.0 MG/DL (1.8-2.4) Pro-B-Type Natriuretic Peptide 56 pg/mL (0-125) Intake and Output 11/5/20 11/6/20 19:00 07:00 Intake Total 480 ml 210 ml Balance 480 ml 210 ml Intake Oral 480 ml 210 ml # Voids 3 3 Assessment/Plan Assessment/Plan #Syncope #bradycardia #Weakness - admit to tele -cardiology eval - monitor vitals - echo - TSH elevated - increase levothyroxine to 125 mcg daily -endocrine eval Time spent 70 min Mita Morfin M.D. Mar 02, 2020 13:18
[2020-03-02] MEDS: Levothyroxine 125mcg tab ORAL SCH (14:02)
[2020-03-02 16:00] VITALS: BP 105/68
--- NOTE | 2020-03-02 16:16 | Surgery Progress Note ---
Surgery Progress Note Subjective Additional Comments thyroid ultrasound noted exam otherwise stable no n/v/f/c Objective Last 24 Hour Vital Signs Date Time Temp Pulse Resp B/P (MAP) Pulse Ox O2 Delivery O2 Flow Rate FiO2 03/02/20 12:00 99.9 64 19 90/59 (69) 99 03/02/20 11:45 53 03/02/20 09:00 Room Air 03/02/20 08:00 99.0 58 18 100/59 (73) 98 03/02/20 07:47 59 03/02/20 04:00 56 03/02/20 04:00 97.7 52 17 103/67 (79) 96 03/02/20 00:00 55 03/02/20 00:00 97.9 55 18 101/60 (74) 97 03/01/20 21:00 Room Air 03/01/20 20:00 97.9 62 19 93/57 (69) 96 03/01/20 20:00 57 I&O Intake and Output 03/01/20 03/02/20 19:00 07:00 Intake Total 480 ml 210 ml Balance 480 ml 210 ml Intake Oral 480 ml 210 ml # Voids 3 3 Cardiovascular: RSR Respiratory: decreased breath sounds Abdomen: non-tender, present bowel sounds Extremities: no edema, no tenderness, no cyanosis Laboratory Tests Test 03/02/20 05:20 White Blood Count 4.9 K/UL (4.8-10.8) Red Blood Count 3.81 M/UL (4.20-5.40) L Hemoglobin 12.5 G/DL (12.0-16.0) Hematocrit 38.3 % (37.0-47.0) Mean Corpuscular Volume 101 FL (80-99) H Mean Corpuscular Hemoglobin 32.8 PG (27.0-31.0) H Mean Corpuscular Hemoglobin Concent 32.6 G/DL (32.0-36.0) Red Cell Distribution Width 13.0 % (11.6-14.8) Platelet Count 210 K/UL (150-450) Mean Platelet Volume 6.8 FL (6.5-10.1) Neutrophils (%) (Auto) 52.1 % (45.0-75.0) Lymphocytes (%) (Auto) 37.9 % (20.0-45.0) Monocytes (%) (Auto) 7.6 % (1.0-10.0) Eosinophils (%) (Auto) 1.5 % (0.0-3.0) Basophils (%) (Auto) 1.0 % (0.0-2.0) Sodium Level 141 MMOL/L (136-145) Potassium Level 3.7 MMOL/L (3.5-5.1) Chloride Level 107 MMOL/L (98-107) Carbon Dioxide Level 26 MMOL/L (21-32) Anion Gap 8 mmol/L (5-15) Blood Urea Nitrogen 15 mg/dL (7-18) Creatinine 0.9 MG/DL (0.55-1.30) Estimat Glomerular Filtration Rate > 60 mL/min (>60) Glucose Level 90 MG/DL (74-106) Calcium Level 8.5 MG/DL (8.5-10.1) Phosphorus Level 3.3 MG/DL (2.5-4.9) Magnesium Level 2.0 MG/DL (1.8-2.4) Pro-B-Type Natriuretic Peptide 56 pg/mL (0-125) Plan Problems: (1) Hypokalemia (2) Hypothyroid Assessment & Plan: 54F tsh elevated, near syncope, hypotensive, abnormal labs. feeling better now thyroid US ordered thyroid labs noted cardiology input appreciated supplementation po intake pt/ot clear will follow with recs thank you 1.9 x 1 x 0.9 cm posterior right lobe thyroid mass. This is a TI RADS-4 lesion. By size criteria, fine-needle aspiration is recommended outpatient follow up with pcp for FNA and path. (3) Near syncope Assessment & Plan: duplex negative no dvt work up (4) Symptomatic bradycardia Assessment & Plan: as per cardiology Jesus Wing Mar 02, 2020 16:16
--- NOTE | 2020-03-02 19:28 | NUR ---
NURSE HAND-OFF REPORT: Important Events on Shift: Patient Status: Diet: Pending Orders: Pending Results/Labs: Pending MD notification: Latest Vital Signs: Temperature 99.0 , Pulse 55 , B/P 105 /68 , Respiratory Rate 19 , O2 SAT 99 , Room Air, O2 Flow Rate . Vital Sign Comment: EKG Rhythm: Sinus Bradycardia Rhythm change?: N MD Notified?: - MD Response: Latest Muro Fall Score: 20 Fall Risk: Low Risk Safety Measures: Call light Within Reach, Bed Alarm Zone 1, Side Rails Side Rails x1, Bed position Low and Locked. Fall Precautions: Yellow Socks Yellow Gown Door Sign Patient Fall Education Report given to . pt is awake and stable, V/S stable, endorsed plan of care, endorsed to monitor BP and HR.
[2020-03-02 20:00] VITALS: BP 95/66
[2020-03-03] VITALS: BP 94/55
[2020-03-03 04:00] VITALS: BP 105/67
[2020-03-03] MEDS: Levothyroxine 125mcg tab ORAL SCH (06:19)
[2020-03-03 07:39] LABS: BASOPHILS % (AUTO) 0.9 % (0.0-2.0); EOSINOPHILS % (AUTO) 1.5 % (0.0-3.0); HEMATOCRIT 38.4 % (37.0-47.0); HEMOGLOBIN 12.6 G/DL (12.0-16.0); LYMPHOCYTES % (AUTO) 45.2 % (20.0-45.0); MEAN CORPUSCULAR VOLUME 99 FL (80-99); MONOCYTES % (AUTO) 8.5 % (1.0-10.0); NEUTROPHILS % (AUTO) 43.9 % (45.0-75.0); PLATELET COUNT 205 K/UL (150-450); RED BLOOD COUNT 3.86 M/UL (4.20-5.40); WHITE BLOOD COUNT 4.1 K/UL (4.8-10.8)
[2020-03-03 08:00] VITALS: BP 99/48
--- NOTE | 2020-03-03 08:02 | NUR ---
NURSE HAND-OFF REPORT: Important Events on Shift: Bradycardia, asymptomatic, also hypotensive 90-100's / 50's Diet: Cardiac diet. Pending Orders: Labs this morning Pending Results/Labs: cbc, bmp, mg and phos this morning Pending MD notification:none Latest Vital Signs: Temperature 97.1 , Pulse 47 , B/P 103 /66 , Respiratory Rate 20 , O2 SAT 100 , Room Air, O2 Flow Rate . Vital Sign Comment: stable EKG Rhythm: Sinus Bradycardia Rhythm change?: N Muro Fall Score: 20 Fall Risk: Low Risk Safety Measures: Call light Within Reach, Bed Alarm Zone 1, Side Rails Side Rails x2, Bed position Low and Locked. Fall Precautions: Patient Fall Education Report given to GUTIERREZ Ashton Addendum: 03/03/20 at 0805 by Luiza Munguia RN report given to Dana WHITLEY
--- NOTE | 2020-03-03 08:05 | NUR ---
NURSE HAND-OFF REPORT: Important Events on Shift: Bradycardia, asymptomatic, also hypotensive 90-100's / 50's Diet: Cardiac diet. Pending Orders: Labs this morning Pending Results/Labs: cbc, bmp, mg and phos this morning Pending MD notification:none Latest Vital Signs: Temperature 97.1 , Pulse 47 , B/P 103 /66 , Respiratory Rate 20 , O2 SAT 100 , Room Air, O2 Flow Rate . Vital Sign Comment: stable EKG Rhythm: Sinus Bradycardia Rhythm change?: N Latest [place] Fall Score: 20 Fall Risk: Low Risk Safety Measures: Call light Within Reach, Bed Alarm Zone 1, Side Rails Side Rails x2, Bed position Low and Locked. Fall Precautions: Patient Fall Education Report given to Dana WHITLEY
--- NOTE | 2020-03-03 08:10 | NUR ---
NURSE NOTES: Received patient in bed awake. No SOB or acute distress. IV line intact. Patient came from bathroom, no complaints of dizziness or discomfort at this time. HOB elevated. Bed locked in low position. Call light within reach. Will continue plan of care.
[2020-03-03 08:20] LABS: ALANINE AMINOTRANSFERASE 38 U/L (12-78); ALBUMIN 3.6 G/DL (3.4-5.0); ALKALINE PHOSPHATASE 42 U/L (46-116); ANION GAP 8 mmol/L (5-15); ASPARTATE AMINO TRANSFERASE 42 U/L (15-37); BILIRUBIN,TOTAL 0.5 MG/DL (0.2-1.0); BLOOD UREA NITROGEN 14 mg/dL (7-18); CALCIUM 8.5 MG/DL (8.5-10.1); CARBON DIOXIDE 26 MMOL/L (21-32); CHLORIDE 108 MMOL/L (98-107); CREATININE 0.9 MG/DL (0.55-1.30); POTASSIUM 3.6 MMOL/L (3.5-5.1); SODIUM 142 MMOL/L (136-145)
--- NOTE | 2020-03-03 09:41 | Internal Med Progress Note ---
Subjective Physician Name Mita Morfin Attending Physician Mita Morfin M.D. Current Medications Medications (Trade) Dose Ordered Sig/Satya Route PRN Reason Start Time Stop Time Status Last Admin Dose Admin Levothyroxine Sodium (Synthroid) 50 mcg DAILY IV 03/02/20 16:00 03/03/20 12:00 03/03/20 08:26 Levothyroxine Sodium (Synthroid) 125 mcg BEFORE BREAKFAST ORAL 03/02/20 13:15 04/01/20 06:29 03/03/20 06:19 Allergies: Coded Allergies: No Known Allergies (Unverified , 02/29/20) ROS Limited/Unobtainable: No Constitutional: Reports: weakness HEENT: Denies: no symptoms, eye pain, blurred vision, tearing, double vision, ear pain, ear discharge, nose pain, nose congestion, throat pain, throat swelling, mouth pain, mouth swelling, other Cardiovascular: Denies: no symptoms, chest pain, edema, irregular heart rate, lightheadedness, palpitations, syncope, other Respiratory: Denies: no symptoms, cough, orthopnea, shortness of breath, SOB with excertion, SOB at rest, sputum, stridor, wheezing, other Gastrointestinal/Abdominal: Denies: no symptoms, abdomen distended, abdominal pain, black stools, tarry stools, blood in stool, constipated, diarrhea, difficulty swallowing, nausea, poor appetite, poor fluid intake, rectal bleeding, vomiting, other Genitourinary: Denies: no symptoms, burning, discharge, frequency, flank pain, hematuria, incontinence, pain, urgency, other Neurologic/Psychiatric: Denies: no symptoms, anxiety, depressed, emotional problems, headache, numbness, paresthesia, pre-existing deficit, seizure, tingling, tremors, weakness, other All Systems: reviewed and negative except above Subjective Still maeve in the 50s no chest pain no SOB Objective Last Vital Signs Date Time Temp Pulse Resp B/P (MAP) Pulse Ox O2 Delivery O2 Flow Rate FiO2 03/03/20 09:00 Room Air 03/03/20 08:00 97.7 65 18 99/48 (65) 96 Laboratory Tests Test 03/03/20 05:20 White Blood Count 4.1 K/UL (4.8-10.8) L Red Blood Count 3.86 M/UL (4.20-5.40) L Hemoglobin 12.6 G/DL (12.0-16.0) Hematocrit 38.4 % (37.0-47.0) Mean Corpuscular Volume 99 FL (80-99) Mean Corpuscular Hemoglobin 32.6 PG (27.0-31.0) H Mean Corpuscular Hemoglobin Concent 32.8 G/DL (32.0-36.0) Red Cell Distribution Width 13.0 % (11.6-14.8) Platelet Count 205 K/UL (150-450) Mean Platelet Volume 6.8 FL (6.5-10.1) Neutrophils (%) (Auto) 43.9 % (45.0-75.0) L Lymphocytes (%) (Auto) 45.2 % (20.0-45.0) H Monocytes (%) (Auto) 8.5 % (1.0-10.0) Eosinophils (%) (Auto) 1.5 % (0.0-3.0) Basophils (%) (Auto) 0.9 % (0.0-2.0) Sodium Level 142 MMOL/L (136-145) Potassium Level 3.6 MMOL/L (3.5-5.1) Chloride Level 108 MMOL/L (98-107) H Carbon Dioxide Level 26 MMOL/L (21-32) Anion Gap 8 mmol/L (5-15) Blood Urea Nitrogen 14 mg/dL (7-18) Creatinine 0.9 MG/DL (0.55-1.30) Estimat Glomerular Filtration Rate > 60 mL/min (>60) Glucose Level 86 MG/DL (74-106) Calcium Level 8.5 MG/DL (8.5-10.1) Total Bilirubin 0.5 MG/DL (0.2-1.0) Aspartate Amino Transf (AST/SGOT) 42 U/L (15-37) H Alanine Aminotransferase (ALT/SGPT) 38 U/L (12-78) Alkaline Phosphatase 42 U/L (46-116) L Total Protein 7.1 G/DL (6.4-8.2) Albumin 3.6 G/DL (3.4-5.0) Globulin 3.5 g/dL Albumin/Globulin Ratio 1.0 (1.0-2.7) Intake and Output 03/02/20 03/03/20 19:00 07:00 Intake Total 1000 ml 670 ml Balance 1000 ml 670 ml Intake Oral 500 ml 670 ml IV Total 500 ml # Voids 2 2 Assessment/Plan Assessment/Plan #Syncope #bradycardia #Weakness - admit to tele -cardiology eval - monitor vitals - echo - TSH elevated - increase levothyroxine to 125 mcg daily -endocrine eval Time spent 70 min Mita Morfin M.D. Mar 03, 2020 09:41
[2020-03-03 11:26] VITALS: BP 115/69
--- NOTE | 2020-03-03 11:53 | Cardiac Electrophysiology PN ---
Assessment/Plan Assessment/Plan 1. Presyncope and hypotension likely due to dehydration. The patient already ruled out for myocardial infarction. The patient was bradycardic with heart rate mostly in the 50s. 2. Bradycardia. EKG showed heart rate of 49. Currently, heart rate is in the 50s. The patient off any sinus fareed or AV fareed blocking agents. EF 55%. Could be due to hypothyroidism 3. Hypothyroidism on Synthroid. 4. Right posterior lobe thyroid mass of 1.9 x 1 x 0.9 cm By size criteria, fine-needle aspiration is recommended Subjective Subjective HR in 50s no CP or SOB. BP better. HR was as low as 48 at night. Getting iv synthroid. Had US of thyroid that showed 1.9 x 1 x 0.9 cm posterior right lobe thyroid mass. Objective Last 24 Hour Vital Signs Date Time Temp Pulse Resp B/P (MAP) Pulse Ox O2 Delivery O2 Flow Rate FiO2 03/03/20 11:26 98.1 80 18 115/69 (84) 98 03/03/20 09:00 Room Air 03/03/20 08:00 97.7 65 18 99/48 (65) 96 03/03/20 08:00 56 03/03/20 04:00 48 03/03/20 04:00 98.2 50 18 105/67 (80) 97 03/03/20 00:00 98.0 48 17 94/55 (68) 95 03/03/20 00:00 54 03/02/20 21:00 Room Air 03/02/20 20:00 50 03/02/20 20:00 98.2 54 18 95/66 (76) 96 03/02/20 16:00 99.0 55 19 105/68 (80) 99 03/02/20 15:50 57 03/02/20 12:00 99.9 64 19 90/59 (69) 99 Intake and Output 03/02/20 03/03/20 19:00 07:00 Intake Total 1000 ml 670 ml Balance 1000 ml 670 ml Intake Oral 500 ml 670 ml IV Total 500 ml # Voids 2 2 Laboratory Tests Test 03/03/20 05:20 White Blood Count 4.1 K/UL (4.8-10.8) L Red Blood Count 3.86 M/UL (4.20-5.40) L Hemoglobin 12.6 G/DL (12.0-16.0) Hematocrit 38.4 % (37.0-47.0) Mean Corpuscular Volume 99 FL (80-99) Mean Corpuscular Hemoglobin 32.6 PG (27.0-31.0) H Mean Corpuscular Hemoglobin Concent 32.8 G/DL (32.0-36.0) Red Cell Distribution Width 13.0 % (11.6-14.8) Platelet Count 205 K/UL (150-450) Mean Platelet Volume 6.8 FL (6.5-10.1) Neutrophils (%) (Auto) 43.9 % (45.0-75.0) L Lymphocytes (%) (Auto) 45.2 % (20.0-45.0) H Monocytes (%) (Auto) 8.5 % (1.0-10.0) Eosinophils (%) (Auto) 1.5 % (0.0-3.0) Basophils (%) (Auto) 0.9 % (0.0-2.0) Sodium Level 142 MMOL/L (136-145) Potassium Level 3.6 MMOL/L (3.5-5.1) Chloride Level 108 MMOL/L (98-107) H Carbon Dioxide Level 26 MMOL/L (21-32) Anion Gap 8 mmol/L (5-15) Blood Urea Nitrogen 14 mg/dL (7-18) Creatinine 0.9 MG/DL (0.55-1.30) Estimat Glomerular Filtration Rate > 60 mL/min (>60) Glucose Level 86 MG/DL (74-106) Calcium Level 8.5 MG/DL (8.5-10.1) Total Bilirubin 0.5 MG/DL (0.2-1.0) Aspartate Amino Transf (AST/SGOT) 42 U/L (15-37) H Alanine Aminotransferase (ALT/SGPT) 38 U/L (12-78) Alkaline Phosphatase 42 U/L (46-116) L Total Protein 7.1 G/DL (6.4-8.2) Albumin 3.6 G/DL (3.4-5.0) Globulin 3.5 g/dL Albumin/Globulin Ratio 1.0 (1.0-2.7) Objective HEAD AND NECK: No JVD or carotid bruit. LUNGS: Clear. CARDIOVASCULAR: Regular S1 and S2 with no gallop or murmur. ABDOMEN: Soft. EXTREMITIES: No pitting edema. Pete Nathan MD Mar 03, 2020 11:53
--- NOTE | 2020-03-03 13:16 | Surgery Progress Note ---
Surgery Progress Note Subjective Additional Comments no acute events comfortable Objective Last 24 Hour Vital Signs Date Time Temp Pulse Resp B/P (MAP) Pulse Ox O2 Delivery O2 Flow Rate FiO2 03/03/20 12:00 53 03/03/20 11:26 98.1 80 18 115/69 (84) 98 03/03/20 09:00 Room Air 03/03/20 08:00 97.7 65 18 99/48 (65) 96 03/03/20 08:00 56 03/03/20 04:00 48 03/03/20 04:00 98.2 50 18 105/67 (80) 97 03/03/20 00:00 98.0 48 17 94/55 (68) 95 03/03/20 00:00 54 03/02/20 21:00 Room Air 03/02/20 20:00 50 03/02/20 20:00 98.2 54 18 95/66 (76) 96 03/02/20 16:00 99.0 55 19 105/68 (80) 99 03/02/20 15:50 57 I&O Intake and Output 03/02/20 03/03/20 19:00 07:00 Intake Total 1000 ml 670 ml Balance 1000 ml 670 ml Intake Oral 500 ml 670 ml IV Total 500 ml # Voids 2 2 Cardiovascular: RSR Respiratory: decreased breath sounds Abdomen: non-tender, present bowel sounds Extremities: no edema, no tenderness, no cyanosis Laboratory Tests Test 03/03/20 05:20 White Blood Count 4.1 K/UL (4.8-10.8) L Red Blood Count 3.86 M/UL (4.20-5.40) L Hemoglobin 12.6 G/DL (12.0-16.0) Hematocrit 38.4 % (37.0-47.0) Mean Corpuscular Volume 99 FL (80-99) Mean Corpuscular Hemoglobin 32.6 PG (27.0-31.0) H Mean Corpuscular Hemoglobin Concent 32.8 G/DL (32.0-36.0) Red Cell Distribution Width 13.0 % (11.6-14.8) Platelet Count 205 K/UL (150-450) Mean Platelet Volume 6.8 FL (6.5-10.1) Neutrophils (%) (Auto) 43.9 % (45.0-75.0) L Lymphocytes (%) (Auto) 45.2 % (20.0-45.0) H Monocytes (%) (Auto) 8.5 % (1.0-10.0) Eosinophils (%) (Auto) 1.5 % (0.0-3.0) Basophils (%) (Auto) 0.9 % (0.0-2.0) Sodium Level 142 MMOL/L (136-145) Potassium Level 3.6 MMOL/L (3.5-5.1) Chloride Level 108 MMOL/L (98-107) H Carbon Dioxide Level 26 MMOL/L (21-32) Anion Gap 8 mmol/L (5-15) Blood Urea Nitrogen 14 mg/dL (7-18) Creatinine 0.9 MG/DL (0.55-1.30) Estimat Glomerular Filtration Rate > 60 mL/min (>60) Glucose Level 86 MG/DL (74-106) Calcium Level 8.5 MG/DL (8.5-10.1) Total Bilirubin 0.5 MG/DL (0.2-1.0) Aspartate Amino Transf (AST/SGOT) 42 U/L (15-37) H Alanine Aminotransferase (ALT/SGPT) 38 U/L (12-78) Alkaline Phosphatase 42 U/L (46-116) L Total Protein 7.1 G/DL (6.4-8.2) Albumin 3.6 G/DL (3.4-5.0) Globulin 3.5 g/dL Albumin/Globulin Ratio 1.0 (1.0-2.7) Plan Problems: (1) Hypokalemia (2) Hypothyroid Assessment & Plan: 54F tsh elevated, near syncope, hypotensive, abnormal labs. feeling better now thyroid US ordered thyroid labs noted cardiology input appreciated supplementation po intake pt/ot clear will follow with recs thank you 1.9 x 1 x 0.9 cm posterior right lobe thyroid mass. This is a TI RADS-4 lesion. By size criteria, fine-needle aspiration is recommended outpatient follow up with pcp for FNA and path. (3) Near syncope Assessment & Plan: duplex negative no dvt work up (4) Symptomatic bradycardia Assessment & Plan: as per cardiology Jesus Wing Mar 03, 2020 13:16
[2020-03-03 15:32] VITALS: BP 102/55
--- NOTE | 2020-03-03 17:57 | NUR ---
NURSE NOTES: Patient transferred to [facility], ambulatory with steady gait. Seen earlier today by Dr jorgensen, said her bradycardia did not require a pacemaker yet. Patient refused SCD, ambulates to the bathroom on supervision only, no complaints of dizziness or discomfort.
--- NOTE | 2020-03-03 18:00 | NUR ---
NURSE HAND-OFF REPORT: Important Events on Shift:transferred to [facility] [place] Awaiting to be seen by Dr Cordova as per Dr Morfin. Patient Status: alert, pleasant Diet: cardiac Pending Orders: Pending Results/Labs: Pending MD notification: Latest Vital Signs: Temperature 98.1 , Pulse 48 , B/P 102 /55 , Respiratory Rate 18 , O2 SAT 98 , Room Air, O2 Flow Rate . Vital Sign Comment: EKG Rhythm: Sinus Bradycardia Rhythm change?: N MD Notified?: - MD Response: Latest Muro Fall Score: 20 Fall Risk: Low Risk Safety Measures: Call light Within Reach, Bed Alarm Zone 1, Side Rails Side Rails x1, Bed position Low and Locked. Fall Precautions: Yellow Socks Yellow Gown Door Sign Patient Fall Education . Addendum: 03/03/20 at 1920 by Dana Gautam RN HAND-OFF: Report given to Vaishali WHITLEY.
--- NOTE | 2020-03-03 19:30 | NUR ---
NURSE NOTES: Received patient in bed awake, alert and oriented. No SOB or acute distress. No complaints of discomfort at this time. IV line intact. SCD's off, refused to wear, ambulatory, asked pt to ask for assistance, verbalized understanding HOB elevated. Bed locked in low position. Call light within reach. Will continue plan of care.
[2020-03-03 20:00] VITALS: BP 110/58
[2020-03-04] VITALS: BP 103/62
[2020-03-04 04:00] VITALS: BP 100/53
[2020-03-04] MEDS: Levothyroxine 125mcg tab ORAL SCH (06:41)
--- NOTE | 2020-03-04 07:39 | NUR ---
NURSE HAND-OFF REPORT: Important Events on Shift Spoke with pt's son, contact listed and gave him MD number to ask questions as they said they were told "one more day, tomorrow you will be discharged." but pt says she is still here and has been since Thursday, she wants to know when she will be able to go home Patient Status: alert, pleasant Diet: cardiac, thin liq Pending Orders: Pending Results/Labs: Pending MD notification: Latest Vital Signs: Temperature 98.1 , Pulse 48 , B/P 102 /55 , Respiratory Rate 18 , O2 SAT 98 , Room Air, O2 Flow Rate . Vital Sign Comment: EKG Rhythm: Sinus Bradycardia throughout night, lowest at 43 Rhythm change?: N previously bradycardic, low BP but not symptomatic Latest Muro Fall Score: 20 Fall Risk: Low Risk Safety Measures: Call light Within Reach, Bed Alarm Zone 1, Side Rails Side Rails x1, Bed position Low and Locked. Fall Precautions: Yellow Socks Yellow Gown Door Sign Patient Fall Education Report given to Dana WHITLEY
--- NOTE | 2020-03-04 07:40 | NUR ---
NURSE NOTES: Received patient in bed awake. No SOB or acute distress. No complaints of discomfort at this time. IV line intact. SCD's off, refused to wear. HOB elevated. Bed locked in low position. Call light within reach. Will continue plan of care.
[2020-03-04 08:00] VITALS: BP 99/62
--- NOTE | 2020-03-04 11:15 | Consultation ---
DATE OF CONSULTATION: 03/04/2020 ENDOCRINOLOGY CONSULTATION CONSULTING PHYSICIAN: Amauri Cordova MD REFERRING PHYSICIAN: Mita Morfin MD REASON FOR CONSULTATION: Hypothyroidism. HISTORY OF PRESENT ILLNESS: The patient presented to the hospital with bradycardia and hypotension. She is 54 years old female with history of hypothyroidism on levothyroxine 75 mcg since last year. She responded to IV fluid and hydration. EKG showed sinus bradycardia of 49 and right ventricular hypertrophy. Thyroid function test was obtained, which was consistent with elevated TSH of 52 with a low-normal T4 of 0.79. PAST MEDICAL HISTORY: Hypothyroidism. MEDICATIONS: Levothyroxine 75 mcg daily. SOCIAL HISTORY: No smoking, alcohol, or drug use. REVIEW OF SYSTEMS: A 12-point review of systems was performed, pertinent positives and negative mentioned in the history of present illness. LABORATORY VALUES: Sodium 142, potassium 3.6, chloride 108, bicarb 26, BUN 14, creatinine 0.9. PHYSICAL EXAMINATION: GENERAL: She is awake and alert. VITAL SIGNS: Blood pressure 92/62, heart rate 53, temperature 98.3. HEENT: Pupils are equal and reactive to light. Sclerae are anicteric. NECK: No JVD. No thyromegaly. No bruit. LUNGS: Clear. HEART: Regular rate and rhythm. ABDOMEN: Positive bowel sounds. EXTREMITIES: No clubbing, cyanosis, or edema. DIAGNOSES: 1. Hypothyroidism. 2. Bradycardia, most likely secondary to hypothyroidism. PLAN: I concur with the current dose of 125 mcg levothyroxine. No need to further increase. TSH and free T4 should be repeated in 4 weeks. There is no need for IV Synthroid. The patient is not in myxedema coma. From parts counter salesperson standpoint, she is cleared for discharge. Thank you, Dr. Morfin, for the courtesy of this consultation. Amauri Cordova M.D. DR: GUTIERREZ/rick JOB#: [id number] CC: NOÉ
[2020-03-04 12:00] VITALS: BP 106/66
--- NOTE | 2020-03-04 12:09 | Internal Med Progress Note ---
Subjective Physician Name Mita Morfin Attending Physician Mita Morfin M.D. Current Medications Medications (Trade) Dose Ordered Sig/Satya Route PRN Reason Start Time Stop Time Status Last Admin Dose Admin Levothyroxine Sodium (Synthroid) 125 mcg BEFORE BREAKFAST ORAL 03/02/20 13:15 04/01/20 06:29 03/04/20 06:41 Allergies: Coded Allergies: No Known Allergies (Unverified , 02/29/20) Subjective Still maeve in the 50s no chest pain no SOB Objective Last Vital Signs Date Time Temp Pulse Resp B/P (MAP) Pulse Ox O2 Delivery O2 Flow Rate FiO2 03/04/20 09:00 Room Air 03/04/20 08:00 53 03/04/20 08:00 98.3 20 99/62 (74) 100 Intake and Output 03/03/20 03/04/20 19:00 07:00 Intake Total 730 ml Balance 730 ml Intake Oral 730 ml # Voids 4 2 Assessment/Plan Assessment/Plan #Syncope #bradycardia #Weakness - admit to tele -cardiology eval - monitor vitals - echo - TSH elevated - increase levothyroxine to 125 mcg daily -endocrine eval Time spent 70 min Mita Morfin M.D. Mar 04, 2020 12:09
[2020-03-04] MEDS ORDERED: LEVOTHYROXINE125 MCG ORAL ×2 (13:13→13:19)
--- NOTE | 2020-03-04 13:26 | NUR ---
NURSE NOTES: Patient ok for discharge as per Dr Morfin, discharged instructions given and verbalized understanding. No new skin issues noted. Belongings accounted for. Prescription given. night monitor removed. IV line removed. ID band removed. Patient to call son to pick her up. Addendum: 03/04/20 at 1511 by Dana Gautam RN NURSE NOTES: Son downstairs, patient ambulated with steady gait to [facility] accompanied by nurse. Discharged to home in stable condition.
--- NOTE | 2020-03-04 15:03 | Cardiology Report ---
APPROVED REPORT EKG Measurement Heart [id number] <Conclusion> Normal sinus rhythm Nonspecific T wave abnormality Prolonged QT Abnormal ECG
--- NOTE | 2020-03-04 16:12 | Cardiac Electrophysiology PN ---
Assessment/Plan Assessment/Plan 1. Presyncope and hypotension likely due to dehydration. The patient already ruled out for myocardial infarction. The patient was bradycardic with heart rate mostly in the 50s. 2. Bradycardia. EKG showed heart rate of 49. Currently, heart rate is in the 50s. The patient off any sinus fareed or AV fareed blocking agents. EF 55%. Could be due to hypothyroidism 3. Hypothyroidism on Synthroid. 4. Right posterior lobe thyroid mass of 1.9 x 1 x 0.9 cm By size criteria, fine-needle aspiration is recommended DW pending today Subjective Subjective HR in 50s no CP or SOB. BP better. . Had US of thyroid that showed 1.9 x 1 x 0.9 cm posterior right lobe thyroid mass. Objective Last 24 Hour Vital Signs Date Time Temp Pulse Resp B/P (MAP) Pulse Ox O2 Delivery O2 Flow Rate FiO2 03/04/20 12:00 53 03/04/20 12:00 98.1 54 20 106/66 (79) 100 03/04/20 09:00 Room Air 03/04/20 08:00 53 03/04/20 08:00 98.3 53 20 99/62 (74) 100 03/04/20 04:00 96.6 50 20 100/53 (69) 98 03/04/20 04:00 43 03/04/20 00:00 96.3 60 20 103/62 (76) 99 03/04/20 00:00 50 03/03/20 21:00 Room Air 03/03/20 20:00 97.7 54 20 110/58 (75) 97 03/03/20 20:00 48 Intake and Output 03/03/20 03/04/20 19:00 07:00 Intake Total 730 ml Balance 730 ml Intake Oral 730 ml # Voids 4 2 Objective HEAD AND NECK: No JVD or carotid bruit. LUNGS: Clear. CARDIOVASCULAR: Regular S1 and S2 with no gallop or murmur. ABDOMEN: Soft. EXTREMITIES: No pitting edema. Pete Nathan MD Mar 04, 2020 16:12
--- NOTE | 2020-03-04 19:15 | Surgery Progress Note ---
Surgery Progress Note Subjective Symptoms: improved, tolerating diet, voiding well, passing flatus, BM Additional Comments patient feels much better ready for d/c today son coming later today outpatient biopsy fna thyroid as per patient Objective Last 24 Hour Vital Signs Date Time Temp Pulse Resp B/P (MAP) Pulse Ox O2 Delivery O2 Flow Rate FiO2 03/04/20 12:00 53 03/04/20 12:00 98.1 54 20 106/66 (79) 100 03/04/20 09:00 Room Air 03/04/20 08:00 53 03/04/20 08:00 98.3 53 20 99/62 (74) 100 03/04/20 04:00 96.6 50 20 100/53 (69) 98 03/04/20 04:00 43 03/04/20 00:00 96.3 60 20 103/62 (76) 99 03/04/20 00:00 50 03/03/20 21:00 Room Air 03/03/20 20:00 97.7 54 20 110/58 (75) 97 03/03/20 20:00 48 I&O Intake and Output 03/03/20 03/04/20 19:00 07:00 Intake Total 730 ml Balance 730 ml Intake Oral 730 ml # Voids 4 2 Cardiovascular: RSR Respiratory: clear Abdomen: soft, non-tender, present bowel sounds Extremities: edema, no tenderness, no cyanosis Plan Problems: (1) Hypokalemia (2) Hypothyroid Assessment & Plan: 54F tsh elevated, near syncope, hypotensive, abnormal labs. feeling better now thyroid US ordered thyroid labs noted cardiology input appreciated supplementation po intake pt/ot clear will follow with recs thank you 1.9 x 1 x 0.9 cm posterior right lobe thyroid mass. This is a TI RADS-4 lesion. By size criteria, fine-needle aspiration is recommended outpatient follow up with pcp for FNA and path. (3) Near syncope Assessment & Plan: duplex negative no dvt work up (4) Symptomatic bradycardia Assessment & Plan: as per cardiology Additional Comments late entry okay to d/c patient to follow up with pcp and schedule outpatient fna Jesus Wign Mar 04, 2020 19:15
--- NOTE | 2020-03-05 10:05 | Cardiology Report ---
APPROVED REPORT EXAM: Two-dimensional and M-mode echocardiogram with Doppler and color Doppler. INDICATION Bradycardia M-Mode DIMENSIONS IVSd0.8 (0.7-1.1cm)Left Atrium (MM)3.8 (1.6-4.0cm) LVDd5.1 (3.5-5.6cm)Aortic Root2.5 (2.0-3.7cm) PWd0.8 (0.7-1.1cm)Aortic Cusp Exc.2.0 (1.5-2.0cm) IVSs1.3 cmEPSS0.2 (>1.0cm) LVDs3.2 (2.5-4.0cm) PWs2.2 cm <Conclusion> Normal left ventricular chamber size, systolic function and wall motion. Left ventricular ejection fraction estimated to be 55-60 %. No evidence of left ventricular hypertrophy. No evidence of pericardial effusion. All other cardiac chamber sizes are within normal limits. Focal aortic valve sclerosis with adequate cusp excursion. Thickened mitral valve leaflets with normal excursion. Mitral annulus and aortic root calcification. Pulmonic valve not well visualized. Normal tricuspid valve structure. IVC at normal size with physiologic collapse. A color flow and spectral Doppler study was performed and revealed: No aortic regurgitation. Trace mitral regurgitation. Mitral inflow velocities indicates normal LV diastolic function. Trace to mild tricuspid regurgitation. Tricuspid systolic velocities suggests peak right ventricular systolic pressure of 23 mmHg. Mild pulmonic regurgitation present.
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
== END 2020-03-04 15:30 | disposition home or self-care (01) | DRG 201 ==
LOC: EDBD 17:23 → EMR 17:35 → 2E 19:30 → EDBEDREQ 20:34 → 2E 03-01 20:54
DX: R00.1 Bradycardia, unspecified (principal); E86.0 Dehydration; R55 Syncope and collapse; E87.6 Hypokalemia; E03.9 Hypothyroidism, unspecified; E07.9 Disorder of thyroid, unspecified
CPT/HCPCS: 36415; 71045; 76536; 80048; 80053; 83735; 83880; 84100; 84439; 84443; 84484; 85025; 93005; 93306; 93970; 96360; 99285; J7030; J8499